=== PATIENT | female | born 1955 | race Hispanic/Latino ===

== ENCOUNTER 2017-11-29 09:42 | Outpatient (CLI) | payer OTHER ==
--- NOTE | 2017-11-30 12:52 | MMO ---
BILATERAL SCREENING MAMMOGRAM: Indication: Annual exam. Comparison: 10-29-10 FINDINGS: This study is interpreted with the assistance of computer aided detection. There are scattered fibroglandular elements bilaterally. There are benign appearing calcifications bilaterally. There is a stable biopsy clip within the right breast. No new suspicious mass, cluster of microcalcification, or area of architectural distortion is evident . IMPRESSION: BIRADS category 2 - benign. Recommend routine annual mammographic screening. POS: ISIAH
== END 2017-11-29 09:43 | disposition home or self-care (01) ==
LOC: SCSMAMMO 09:42
PROVIDERS: ATTEND Physician Assistant
DX: Z12.31 Encounter for screening mammogram for malignant neoplasm of breast (principal)
CPT/HCPCS: 77067

== ENCOUNTER 2018-03-01 09:06 | Day surgery (SDC) | payer OTHER ==
[2018-02-28 13:27] VITALS: BMI 25.4
--- NOTE | 2018-03-01 00:24 | HP ---
DATE OF ADMISSION: 03/01/2018 SHORT-STAY HISTORY AND PHYSICAL HISTORY OF PRESENT ILLNESS: Ms. Coty Faye is a 62-year-old, Latin- [place] female who comes for a colonoscopy for cancer screening. The patient has no specific GI symptoms. Her bowel movements are regular. There is no history of abdominal pain or hematochezia. She has no family history of colon cancer. ALLERGIES: None. SOCIAL HISTORY: The patient does not smoke, but drinks alcohol occasionally. MEDICAL ILLNESSES: 1. Osteopenia. 2. Vitamin D deficiency. 3. Hemorrhoids. 5. Cholecystectomy. PHYSICAL EXAMINATION: VITAL SIGNS: Pulse is 70, blood pressure 130/80. HEENT: Conjunctivae clear. CARDIOVASCULAR: First and second heart sounds are normal. LUNGS: Clear to auscultation. ABDOMEN: Soft to palpate. No organomegaly. No tenderness. No masses. ADMITTING DIAGNOSIS: A 62-year-old female comes for a colonoscopy for colon cancer screening. NASRA
[2018-03-01] MEDS ORDERED: PROPOFOL 200 MG/20 ML VIAL ONE (11:39)
--- NOTE | 2018-03-01 13:34 | OP ---
DATE OF PROCEDURE: 03/01/2018. OPERATIVE PROCEDURE: Colonoscopy. PREOPERATIVE DIAGNOSIS: A 62-year-old Latin-[place] female undergoing colonoscopy for colon cancer screening. POSTOPERATIVE DIAGNOSES: 1. Diffuse colonic diverticular disease. 2. Hemorrhoids. OPERATIVE PROCEDURE IN DETAIL: The patient was placed on her left lateral position and was given sed ation by Anesthesia Department. A rectal exam was done before the scope was advanced into the rectum . No lesion felt on rectal exam. A Pentax video colonoscope was introduced into the rectum and adva nced all the way to the cecum. The prep was good. The mucosa appears normal throughout the colon. The appendical orifice, ileocecal valve, cecum, no pathology seen. Withdrawal of scope in cecum and ascending colon, hepatic flexure, transverse colon, splenic flexure, descending colon, sigmoid colon showed scattered diverticular disease. Rectum showed hemorrhoids. DISCHARGE PLANNING: This is a 62-year-old Latin-[place] female who came for a colonoscopy for colon cancer screening. She underwent colonoscopy and was found to have diffuse colonic diverticulosis. DISCHARGE RECOMMENDATIONS: 1. High-fiber diet. 2. Metamucil. 3. Repeat colonoscopy in 10 years.
== END 2018-03-01 12:28 | disposition home or self-care (01) ==
LOC: SDC 09:06
PROVIDERS: ATTEND Internal Medicine Gastroenterology
PROC: 0DJD8ZZ Inspection of Lower Intestinal Tract, Via Natural or Artificial Opening Endoscopic (ICD-10-PCS; principal; 2018-03-01)
DX: Z12.11 Encounter for screening for malignant neoplasm of colon (principal); K57.30 Diverticulosis of large intestine without perforation or abscess without bleeding; K64.9 Unspecified hemorrhoids; M85.80 Other specified disorders of bone density and structure, unspecified site; E55.9 Vitamin D deficiency, unspecified; Z79.83 Long term (current) use of bisphosphonates; Z79.899 Other long term (current) drug therapy
CPT/HCPCS: J2704

== ENCOUNTER 2020-08-08 09:32 | Outpatient (CLI) | payer BC | END 2020-08-08 09:33 | disposition home or self-care (01) | LOC: BICMAMMO 09:32 | PROVIDERS: ATTEND Physician Assistant | DX: Z12.31 Encounter for screening mammogram for malignant neoplasm of breast (principal) | CPT/HCPCS: 77063; 77067 ==

== ENCOUNTER 2023-01-15 09:54 | Outpatient (CLI) | payer OTHER | END 2023-01-15 09:55 | disposition home or self-care (01) | LOC: ULT 09:54 | PROVIDERS: ATTEND Physician Assistant | DX: R10.11 Right upper quadrant pain (principal); Z90.49 Acquired absence of other specified parts of digestive tract | CPT/HCPCS: 76705 ==

== ENCOUNTER 2023-10-22 10:42 | Outpatient (CLI) | payer OTHER | END 2023-10-22 10:43 | disposition home or self-care (01) | LOC: BICMAMMO 10:42 | PROVIDERS: ATTEND Family Medicine | DX: Z12.31 Encounter for screening mammogram for malignant neoplasm of breast (principal) | CPT/HCPCS: 77063; 77067 ==

== ENCOUNTER 2024-11-21 10:25 | Outpatient (CLI) | payer OTHER | END 2024-11-21 10:26 | disposition home or self-care (01) | LOC: BICMAMMO 10:25 | PROVIDERS: ATTEND Family Medicine | DX: Z12.31 Encounter for screening mammogram for malignant neoplasm of breast (principal) | CPT/HCPCS: 77063; 77067 ==